=== PATIENT | female | born 1965 | race Caucasian/White ===

== ENCOUNTER 2025-10-19 09:34 | Emergency (ER) | payer BC ==
[~2025-10-19] VITALS: Ht 162.6 cm; Wt 63.5 kg
[2025-10-19] MEDS ORDERED: TYLENOL PO STA (09:51)
[2025-10-19] MEDS ORDERED: DUONEB 0.5-3(2.5) MG/3 ML IH ONE (09:51)
[2025-10-19] MEDS: DUONEB 0.5-3(2.5) MG/3 ML IH STA (09:58)
[2025-10-19 09:59] VITALS: BP 124/65; PULSE 105; PULSE 114; RESP 19; TEMP 98.3; O2SAT 98; O2SAT 99
[2025-10-19 10:00] VITALS: PULSE 92; O2SAT 100
[2025-10-19] MEDS ORDERED: WATER 20 ML ONE (10:15)
[2025-10-19] MEDS ORDERED: TYLENOL ONE (10:15)
[2025-10-19 10:21] LABS: HUMAN RHINOVIRUS/ENTEROVIRUS NotDetected (NotDetected)
[2025-10-19] MEDS: TYLENOL PO STA (10:28)
[2025-10-19] MEDS: MOTRIN PO STA (10:28)
[2025-10-19] MEDS: SOLU-MEDROL IM STA (10:28)
[2025-10-19] MEDS ORDERED: TESSALON PO ONE (10:42)
[2025-10-19] MEDS ORDERED: PRED20TA PO (10:46)
[2025-10-19] MEDS ORDERED: ALBU18HF IH (10:46)
[2025-10-19] MEDS ORDERED: BENZ-14 PO (10:46)
[2025-10-19] MEDS ORDERED: AZIT250T14 PO (10:46)
[2025-10-19] MEDS: TESSALON PO STA (10:48)
== END 2025-10-19 10:54 | disposition home or self-care (01) ==
LOC: ER 09:34
DX: J40 Bronchitis, not specified as acute or chronic (principal); Z20.822 Contact with and (suspected) exposure to COVID-19
CPT/HCPCS: 99284; 96372; 87070; 87632; 94640; J2919; A4216; J3490